=== PATIENT | male | born 1985 | race Caucasian/White ===

== ENCOUNTER 2017-11-22 09:52 | Inpatient (IN) | payer OTHER ==
[2017-11-22] MEDS: morphine 4 MG/ML VIAL IV (10:25)
[2017-11-22] MEDS: SOD CHLORIDE 0.9% 1,000 ML IV ×4 (10:25→23:12)
[2017-11-22] MEDS: ONDANSETRON 4 MG INJ IV (10:25)
[2017-11-22 10:34] LABS: ADD MAN DIFF? NO
[2017-11-22 10:35] LABS: WHITE BLOOD COUNT 14.6 10^3/ul (4.8-10.8)
[2017-11-22 10:35] LABS: ABNORMAL IP MESSAGE 1; BASOPHIL # 0.1 10^3/ul (0.0-0.1); BASOPHILS % 0.5 % (0.0-2.0); EOSINOPHILS % 0.3 % (0.0-7.0); HEMATOCRIT 44.1 % (42.0-52.0); LYMPHOCYTES # 2.3 10^3/ul (0.8-2.9); LYMPHOCYTES % 15.9 % (15.0-51.0); MEAN CORPUSCULAR HEMOGLOBIN 33.8 pg (29.0-33.0); MEAN CORPUSCULAR HGB CONC 36.3 g/dl (32.0-37.0); MEAN CORPUSCULAR VOLUME 93.2 fl (82.0-101.0); MEAN PLATELET VOLUME 11.1 fl (7.4-10.4); MONOCYTE # 1.6 10^3/ul (0.3-0.9); MONOCYTES % 10.7 % (0.0-11.0); NEUTROPHIL # 10.6 10^3/ul (1.6-7.5); NEUTROPHILS % 72.3 % (39.0-77.0); PLATELET COUNT 172 10^3/UL (140-415); POSITIVE DIFF @See below; RED BLOOD COUNT 4.73 10^6/ul (4.70-6.10); RED CELL DISTRIBUTION WIDTH 11.9 % (11.5-14.5)
[2017-11-22 10:39] LABS: ADD UMIC YES; UR ASCORBIC ACID NEGATIVE (NEGATIVE); UR BACTERIA FEW /HPF (NONE SEEN); UR BILIRUBIN (Dip) NEGATIVE (NEGATIVE); UR BLOOD (Dip) 3+ mg/dL (NEGATIVE); UR CLARITY CLEAR (CLEAR); UR COLOR YELLOW (YELLOW); UR GLUCOSE (Dip) NEGATIVE (NEGATIVE); UR KETONES (Dip) NEGATIVE (NEGATIVE); UR LEUKOCYTE ESTERASE (Dip) NEGATIVE Leu/ul (NEGATIVE); UR NITRITE (Dip) NEGATIVE (NEGATIVE); UR RBC 2 /HPF (0-5); UR SPECIFIC GRAVITY (Dip) 1.005 (1.003-1.030); UR TOTAL PROTEIN (Dip) 1+ mg/dl (NEGATIVE); UR UROBILINOGEN (Dip) NEGATIVE (NEGATIVE); UR WBC 5 /HPF (0-5)
[2017-11-22 10:59] LABS: ALANINE AMINOTRANSFERASE 108 IU/L (13-69); ALBUMIN 3.9 g/dl (3.3-4.9); ALBUMIN/GLOBULIN RATIO 1.08; ALKALINE PHOSPHATASE 126 IU/L (42-121); ANION GAP 14 (8-16); ASPARTATE AMINO TRANSFERASE 99 IU/L (15-46); BILIRUBIN,INDIRECT 1.8 mg/dl (0-1.1); BILIRUBIN,TOTAL 1.8 mg/dl (0.2-1.3); BLOOD UREA NITROGEN 13 mg/dl (7-20); CALCIUM 8.9 mg/dl (8.4-10.2); CARBON DIOXIDE 28 mmol/L (21-31); CHLORIDE 101 mmol/L (97-110); CREATININE 1.21 mg/dl (0.61-1.24); GLUCOSE 135 mg/dl (70-220); LIPASE 1192 U/L (23-300); POTASSIUM 3.8 mmol/L (3.5-5.1); SODIUM 139 mmol/L (135-144); TOTAL PROTEIN 7.5 g/dl (6.1-8.1)
[2017-11-22] MEDS ORDERED: ACETAMINOPHEN 325 MG TAB PO ×2 (12:30→14:30)
[2017-11-22] MEDS ORDERED: ONDANSETRON 4 MG INJ IV ×3 (12:30→15:30)
[2017-11-22] MEDS ORDERED: ONDANSETRON 4 MG TAB PO ×2 (14:30→15:30)
[2017-11-22] MEDS ORDERED: NACL 0.9% 3 ML SYG IV (14:30)
[2017-11-22] MEDS ORDERED: METOCLOPRAMIDE 10 MG INJ IV (14:30)
[2017-11-22] MEDS ORDERED: morphine 2 MG INJ IV (14:30)
[2017-11-22] MEDS ORDERED: LORAZEPAM 1 MG TAB PO ×2 (14:30)
[2017-11-22 14:49] LABS: ETHANOL < 10.0 mg/dl
[2017-11-22] MEDS: LORAZEPAM 1 MG TAB PO (16:56)
[2017-11-22] MEDS: HYDROCODONE/APAP (5/325) TAB PO (16:57)
[2017-11-22 19:24] LABS: LIPASE 753 U/L (23-300)
[2017-11-23] MEDS: SOD CHLORIDE 0.9% 1,000 ML IV (03:21)
[2017-11-23 05:48] LABS: ADD MAN DIFF? NO
[2017-11-23 05:56] LABS: BASOPHIL # 0.1 10^3/ul (0.0-0.1); BASOPHILS % 0.5 % (0.0-2.0); EOSINOPHILS # 0.1 10^3/ul (0.0-0.5); EOSINOPHILS % 1.4 % (0.0-7.0); HEMATOCRIT 33.8 % (42.0-52.0); HEMOGLOBIN 11.7 g/dl (14.0-18.0); LYMPHOCYTES # 1.8 10^3/ul (0.8-2.9); LYMPHOCYTES % 18.8 % (15.0-51.0); MEAN CORPUSCULAR HEMOGLOBIN 33.8 pg (29.0-33.0); MEAN CORPUSCULAR HGB CONC 34.6 g/dl (32.0-37.0); MEAN CORPUSCULAR VOLUME 97.7 fl (82.0-101.0); MEAN PLATELET VOLUME 11.7 fl (7.4-10.4); MONOCYTES % 10.2 % (0.0-11.0); NEUTROPHIL # 6.6 10^3/ul (1.6-7.5); NEUTROPHILS % 68.7 % (39.0-77.0); PLATELET COUNT 131 10^3/UL (140-415); RED BLOOD COUNT 3.46 10^6/ul (4.70-6.10); RED CELL DISTRIBUTION WIDTH 12.2 % (11.5-14.5)
[2017-11-23 05:56] LABS: WHITE BLOOD COUNT 9.5 10^3/ul (4.8-10.8)
[2017-11-23 06:18] LABS: ALANINE AMINOTRANSFERASE 72 IU/L (13-69); ALBUMIN 2.8 g/dl (3.3-4.9); ALBUMIN/GLOBULIN RATIO 1.21; ALKALINE PHOSPHATASE 77 IU/L (42-121); ANION GAP 13 (8-16); ASPARTATE AMINO TRANSFERASE 62 IU/L (15-46); BLOOD UREA NITROGEN 7 mg/dl (7-20); CALCIUM 7.9 mg/dl (8.4-10.2); CARBON DIOXIDE 29 mmol/L (21-31); CHLORIDE 105 mmol/L (97-110); CREATININE 0.93 mg/dl (0.61-1.24); GLUCOSE 105 mg/dl (70-220); MAGNESIUM 2.1 mg/dl (1.7-2.5); PHOSPHORUS 2.5 mg/dl (2.5-4.9); POTASSIUM 3.8 mmol/L (3.5-5.1); SODIUM 143 mmol/L (135-144); TOTAL PROTEIN 5.1 g/dl (6.1-8.1)
[2017-11-23 06:54] LABS: HEPATITIS B SURFACE ANTIGEN NEGATIVE (NEGATIVE)
[2017-11-23] MEDS: HYDROCODONE/APAP (5/325) TAB PO (07:03)
[2017-11-23 07:04] LABS: HEPATITIS B SURFACE ANTIBODY NEGATIVE (NEGATIVE)
[2017-11-23 07:07] LABS: HEPATITIS B CORE ANTIBODY NEGATIVE (NEGATIVE); HEPATITIS C VIRAL ANTIBODY NEGATIVE (NEGATIVE)
[2017-11-23] MEDS ORDERED: THIAMINE 200 MG INJ IM (09:00)
[2017-11-23] MEDS: ENOXAPARIN 40 MG/0.4 ML SYG SC (10:29)
[2017-11-23] MEDS: FOLIC ACID 1 MG TAB PO (10:30)
[2017-11-23] MEDS: MULTIVITAMINS THERAPEUTIC TAB PO (10:30)
[2017-11-23] MEDS: THIAMINE 200 MG INJ IM (10:31)
[2017-11-23] MEDS ORDERED: morphine LIQ (10 MG/5 ML) CUP PO (17:00)
[2017-11-23] MEDS: SENNA TAB PO (20:39)
[2017-11-23] MEDS: MAGNESIUM HYDROXIDE 30ML CUP PO (20:39)
[2017-11-24] MEDS: HYDROCODONE/APAP (5/325) TAB PO (01:33)
[2017-11-24 07:46] LABS: ALANINE AMINOTRANSFERASE 79 IU/L (13-69); ANION GAP 15 (8-16); ASPARTATE AMINO TRANSFERASE 73 IU/L (15-46); BLOOD UREA NITROGEN 5 mg/dl (7-20); CALCIUM 8.7 mg/dl (8.4-10.2); CARBON DIOXIDE 31 mmol/L (21-31); CHLORIDE 99 mmol/L (97-110); CREATININE 0.91 mg/dl (0.61-1.24); GLUCOSE 105 mg/dl (70-220); POTASSIUM 3.6 mmol/L (3.5-5.1); SODIUM 141 mmol/L (135-144)
[2017-11-24 07:47] LABS: ALBUMIN 3.7 g/dl (3.3-4.9); ALBUMIN/GLOBULIN RATIO 1.37; ALKALINE PHOSPHATASE 123 IU/L (42-121); BILIRUBIN,INDIRECT 0.9 mg/dl (0-1.1); BILIRUBIN,TOTAL 0.9 mg/dl (0.2-1.3); TOTAL PROTEIN 6.4 g/dl (6.1-8.1)
[2017-11-24] MEDS: SENNA TAB PO (08:29)
[2017-11-24] MEDS: FOLIC ACID 1 MG TAB PO (08:29)
[2017-11-24] MEDS: MULTIVITAMINS THERAPEUTIC TAB PO (08:29)
[2017-11-24] MEDS: ENOXAPARIN 40 MG/0.4 ML SYG SC (08:30)
[2017-11-24] MEDS: THIAMINE 200 MG INJ IM (10:35)
[2017-11-26] MEDS ORDERED: THIAMINE 100 MG TAB PO (09:00)
== END 2017-11-24 12:00 | disposition home or self-care (01) | DRG 440 ==
LOC: FTE 09:52 → PP2 12:18
DX: K85.20 Alcohol induced acute pancreatitis without necrosis or infection (principal); F10.10 Alcohol abuse, uncomplicated
CPT/HCPCS: 36415; 74176; 76705; 80053; 80307; 81001; 83690; 83735; 84100; 85025; 86704; 86706; 86708; 86709; 86803; 87340; 96374; 96375; 99285-25